=== PATIENT | male | born 1990 | race Caucasian/White ===

== ENCOUNTER 2023-09-12 20:25 | Emergency (ER) | payer SELFPAY ==
[~2023-09-12] VITALS: Ht 162.6 cm; Wt 96.0 kg
[2023-09-12 20:42] VITALS: O2SAT 97
[2023-09-12] MEDS: TETANUS, DIPHTHERIA, PERTUSSIS VAC/PF 0.5ML (>10YR OLD) IM ONE (21:25)
[2023-09-12] MEDS ORDERED: AMOX1TAB16 MT (21:28)
[2023-09-12] MEDS: LIDOCAINE HCL/PF 1% 10 MG/ML 5ML VIAL INFIL ONE (21:58)
[2023-09-12 22:51] VITALS: BP 129/90; PULSE 74; RESP 18; TEMP 98.2
== END 2023-09-12 22:54 | disposition home or self-care (01) ==
LOC: ER 20:25
DX: S61.451A Open bite of right hand, initial encounter (principal)
CPT/HCPCS: 90715; 12002; 90471; 99283; J3490; Z7610

== ENCOUNTER 2023-09-26 08:57 | Emergency (ER) | payer SELFPAY ==
[~2023-09-26] VITALS: Ht 172.7 cm; Wt 88.0 kg
[~2023-09-26 08:57] MED LIST: AMOX1TAB16 MT
[2023-09-26 09:11] VITALS: O2SAT 99
[2023-09-26 10:23] VITALS: BP 119/78; PULSE 71; RESP 20; TEMP 98
== END 2023-09-26 11:26 | disposition home or self-care (01) ==
LOC: ER 08:57
DX: S51.811D Laceration without foreign body of right forearm, subsequent encounter (principal); W54.0XXD Bitten by dog, subsequent encounter
CPT/HCPCS: 99281; Z7610

== ENCOUNTER 2024-01-06 06:24 | Inpatient (IN) | payer SELFPAY ==
[~2024-01-06] VITALS: Ht 165.1 cm; Wt 89.8 kg
[2024-01-06] MEDS ORDERED: ONDANSETRON HCL 4MG/2ML INJ IV STA (06:57)
[2024-01-06] MEDS ORDERED: MORPHINE SULFATE 4 MG/ML INJ (FOR IV/IM USE) IV STA (06:57)
[2024-01-06 07:16] LABS: CHLORIDE 105 mEq/L (98-107); POTASSIUM 4.9 mEq/L (3.5-5.1); SODIUM 137 mEq/L (136-145)
[2024-01-06 07:17] LABS: CALCIUM 9.8 mg/dL (8.7-10.4); CARBON DIOXIDE 26 mEq/L (21-32)
[2024-01-06 07:19] LABS: BASOPHILS % 0.3 % (0.0-2.0); EOSINOPHILS % 0.3 % (0.0-5.0); HEMATOCRIT. 48.6 % (42.0-52.0); HEMOGLOBIN. 17.1 g/dL (14.0-18.0); LYMPHOCYTES % 11.2 % (20.0-50.0); MEAN CORPUSCULAR HEMOGLOBIN 33.1 pg (28.0-32.0); MEAN CORPUSCULAR HGB CONC 35.2 g/dL (31.0-37.0); MEAN CORPUSCULAR VOLUME 93.9 fL (80.0-94.0); MEAN PLATELET VOLUME 8.3 fl (7.4-10.4); MONOCYTES % 6.2 % (2.0-8.0); PLATELET 199 x1000/uL (130-400); RED BLOOD CELL COUNT 5.18 mill/uL (4.7-6.1); RED CELL DISTRIBUTION WIDTH 12.9 % (11.6-14.6); WHITE BLOOD COUNT 13.6 x1000/uL (4.5-11.0)
[2024-01-06 07:22] LABS: CREATININE 0.8 mg/dL (0.6-1.3); GLUCOSE 170 mg/dL (70-105); UREA NITROGEN BLOOD 13 mg/dL (9-23)
[2024-01-06 07:24] LABS: ALANINE AMINOTRANSFERASE 88 IU/L (10-49); ASPARTATE AMINOTRANSFERASE 67 IU/L (<34); BILIRUBIN DIRECT 0.2 mg/dL (<=3.0); BILIRUBIN TOTAL 0.9 mg/dL (0.1-1.0); PROTEIN TOTAL 6.9 g/dL (6.0-8.3)
[2024-01-06 07:36] LABS: PROTHROMBIN TIME 10.9 sec (9.6-11.0)
[2024-01-06] MEDS: MORPHINE SULFATE 4 MG/ML INJ (FOR IV/IM USE) IV NR (09:41)
[2024-01-06] MEDS: ONDANSETRON HCL 4MG/2ML INJ IV NR (09:41)
[2024-01-06] MEDS: IOHEXOL-300 100 ML BOTTLE ONE (09:57)
[2024-01-06] MEDS ORDERED: MAGNESIUM/ALUMINUM HYDROXIDE/SIMETHICONE 30ML UDC PO PRN (13:45)
[2024-01-06] MEDS ORDERED: ACETAMINOPHEN 325MG TABLET PO PRN (13:45)
[2024-01-06] MEDS ORDERED: GUAIFENESIN 200MG/10ML SUGAR FREE UDC PO PRN (13:45)
[2024-01-06] MEDS ORDERED: DOCUSATE SODIUM 100MG CAPSULE PO PRN (13:45)
[2024-01-06] MEDS ORDERED: CLONIDINE 0.1MG TABLET PO PRN (13:45)
[2024-01-06] MEDS ORDERED: ONDANSETRON HCL 4MG/2ML INJ IV PRN (13:45)
[2024-01-06] MEDS ORDERED: NALOXONE HCL 0.4MG/ML VIAL IV PRN (14:00)
[2024-01-06] MEDS ORDERED: SODIUM CHLORIDE 0.9% 1,000 ML IV ONE (14:15)
[2024-01-06 14:18] LABS: PHOSPHORUS 2.7 mg/dL (2.5-4.9)
[2024-01-06 14:20] LABS: T4 FREE 1.11 ng/dL (0.89-1.76)
[2024-01-06 14:21] LABS: THYROID STIMULATING HORMONE 2.68 uIU/mL (0.55-4.78)
[2024-01-06 14:37] LABS: HEPATITIS B SURFACE ANTIGEN NEGATIVE (Negative)
[2024-01-06 14:57] LABS: HEPATITIS A AB IGM NEGATIVE (Negative)
[2024-01-06 14:58] LABS: HEPATITIS B CORE AB IGM NEGATIVE (Negative); HEPATITIS C AB NON REACTIVE (Neg) (Negative)
[2024-01-06] MEDS: SODIUM CHLORIDE 0.9% 1,000 ML IV ONE (15:42)
[2024-01-06] MEDS: PANTOPRAZOLE SODIUM 40 MG/VIAL IV SCH ×2 (15:43→20:47)
[2024-01-06 16:00] VITALS: BP 138/75; PULSE 92; RESP 20; TEMP 98.6
[2024-01-06] MEDS: LACTATED RINGERS 1,000 ML IV SCH (16:00)
[2024-01-06] MEDS: MORPHINE SULFATE 2 MG/ML INJ (NOT FOR IM USE) IV PRN (16:27)
[2024-01-06 16:34] VITALS: BP 142/101; PULSE 80; RESP 16; TEMP 97.7
[2024-01-06 18:35] LABS: ETHANOL BLOOD < 10 mg/dL (<10)
[2024-01-06] MEDS: ACETAMINOPHEN 325MG TABLET PO PRN (18:47)
[2024-01-06] MEDS ORDERED: LORAZEPAM 2MG/ML INJ IV PRN (19:15)
[2024-01-06 20:00] VITALS: BP 138/85; PULSE 89; RESP 18; TEMP 97.7
[2024-01-06] MEDS: FOLIC ACID 1MG TABLET PO SCH (20:47)
[2024-01-06] MEDS: THIAMINE HCL 100MG TABLET PO SCH (20:47)
[2024-01-07] VITALS: BP 151/96; PULSE 94; RESP 18; TEMP 98.1
[2024-01-07 07:31] LABS: BASOPHILS % 0.1 % (0.0-2.0); EOSINOPHILS % 0.2 % (0.0-5.0); HEMATOCRIT. 45.6 % (42.0-52.0); HEMOGLOBIN. 15.9 g/dL (14.0-18.0); LYMPHOCYTES % 12.7 % (20.0-50.0); MEAN CORPUSCULAR HEMOGLOBIN 32.5 pg (28.0-32.0); MEAN CORPUSCULAR HGB CONC 34.8 g/dL (31.0-37.0); MEAN CORPUSCULAR VOLUME 93.5 fL (80.0-94.0); MEAN PLATELET VOLUME 8.3 fl (7.4-10.4); MONOCYTES % 6.6 % (2.0-8.0); NEUTROPHILS % 80.4 % (40.0-76.0); PLATELET 171 x1000/uL (130-400); RED BLOOD CELL COUNT 4.88 mill/uL (4.7-6.1); RED CELL DISTRIBUTION WIDTH 13.4 % (11.6-14.6); WHITE BLOOD COUNT 10.3 x1000/uL (4.5-11.0)
[2024-01-07 07:50] LABS: CHLORIDE 102 mEq/L (98-107); POTASSIUM 4.2 mEq/L (3.5-5.1); SODIUM 136 mEq/L (136-145)
[2024-01-07 07:51] LABS: CALCIUM 9.1 mg/dL (8.7-10.4); CARBON DIOXIDE 27 mEq/L (21-32)
[2024-01-07 07:56] LABS: CREATININE 0.8 mg/dL (0.6-1.3); GLUCOSE 114 mg/dL (70-105); UREA NITROGEN BLOOD 12 mg/dL (9-23)
[2024-01-07 07:58] LABS: ALANINE AMINOTRANSFERASE 56 IU/L (10-49); ALBUMIN 4.2 g/dL (3.2-4.8); ASPARTATE AMINOTRANSFERASE 38 IU/L (<34); BILIRUBIN TOTAL 1.7 mg/dL (0.1-1.0)
[2024-01-07 08:00] VITALS: BP 143/99; PULSE 91; RESP 18; TEMP 97.9
[2024-01-07 12:00] VITALS: BP 153/96; PULSE 110; RESP 18; TEMP 98.1
[2024-01-07 16:00] VITALS: BP 142/92; PULSE 106; RESP 18; TEMP 98.1
[2024-01-07 20:00] VITALS: BP 132/88; PULSE 95; RESP 18; TEMP 97.6
[2024-01-07] MEDS: HYDROCODONE/ACETAMINOPHEN 5/325MG TABLET PO PRN (23:19)
[2024-01-08] VITALS: BP 136/82; PULSE 95; RESP 18; TEMP 97.7
[2024-01-08 04:00] VITALS: BP 130/85; PULSE 83; RESP 18; TEMP 97.5
[2024-01-08 07:20] LABS: BASOPHILS % 0.3 % (0.0-2.0); EOSINOPHILS % 1.4 % (0.0-5.0); HEMATOCRIT. 42.4 % (42.0-52.0); HEMOGLOBIN. 14.8 g/dL (14.0-18.0); LYMPHOCYTES % 17.1 % (20.0-50.0); MEAN CORPUSCULAR HEMOGLOBIN 32.7 pg (28.0-32.0); MEAN CORPUSCULAR HGB CONC 34.8 g/dL (31.0-37.0); MEAN PLATELET VOLUME 8.4 fl (7.4-10.4); MONOCYTES % 8.2 % (2.0-8.0); PLATELET 165 x1000/uL (130-400); RED BLOOD CELL COUNT 4.52 mill/uL (4.7-6.1); RED CELL DISTRIBUTION WIDTH 12.9 % (11.6-14.6); WHITE BLOOD COUNT 11.6 x1000/uL (4.5-11.0)
[2024-01-08 07:24] LABS: CARBON DIOXIDE 26 mEq/L (21-32); CHLORIDE 103 mEq/L (98-107); POTASSIUM 4.2 mEq/L (3.5-5.1); SODIUM 135 mEq/L (136-145)
[2024-01-08 07:25] LABS: CALCIUM 9.3 mg/dL (8.7-10.4)
[2024-01-08 07:30] LABS: CREATININE 0.7 mg/dL (0.6-1.3); GLUCOSE 93 mg/dL (70-105); UREA NITROGEN BLOOD 9 mg/dL (9-23)
[2024-01-08 08:00] VITALS: BP 136/90; PULSE 103; RESP 20; TEMP 99.4
[2024-01-08 09:19] LABS: ALANINE AMINOTRANSFERASE 43 IU/L (10-49); ALBUMIN 4.2 g/dL (3.2-4.8); ASPARTATE AMINOTRANSFERASE 33 IU/L (<34); BILIRUBIN DIRECT 0.5 mg/dL (<=3.0); BILIRUBIN TOTAL 1.6 mg/dL (0.1-1.0); PROTEIN TOTAL 6.9 g/dL (6.0-8.3)
[2024-01-08 12:00] VITALS: BP 139/95; PULSE 97; RESP 20; TEMP 99.2
[2024-01-08] MEDS ORDERED: FOLI-43 PO (12:18)
[2024-01-08] MEDS ORDERED: THIA100T72 PO (12:18)
[2024-01-08] MEDS ORDERED: ATOR20TA MT (12:18)
[2024-01-08 16:00] VITALS: BP 134/93; PULSE 114; RESP 20; TEMP 100.1
[2024-01-08 16:28] VITALS: BP 139/95; PULSE 97; TEMP 99.2; O2SAT 95
== END 2024-01-08 18:45 | disposition home or self-care (01) | DRG 282 ==
LOC: ER 06:24 → 6WST 11:37 → EDBEDREQ 11:43 → EDBEDREQTM 11:43
PROVIDERS: ADMIT Internal Medicine; ATTEND Internal Medicine
DX: K85.20 Alcohol induced acute pancreatitis without necrosis or infection (principal); R18.8 Other ascites; K76.0 Fatty (change of) liver, not elsewhere classified; E78.1 Pure hyperglyceridemia; E78.00 Pure hypercholesterolemia, unspecified; D72.829 Elevated white blood cell count, unspecified; F10.10 Alcohol abuse, uncomplicated; Z20.822 Contact with and (suspected) exposure to COVID-19; Y90.9 Presence of alcohol in blood, level not specified; R16.1 Splenomegaly, not elsewhere classified; R74.01 Elevation of levels of liver transaminase levels; R73.9 Hyperglycemia, unspecified; Z79.899 Other long term (current) drug therapy
CPT/HCPCS: 36415; 74177; 76700; 80048; 80053; 80061; 80076; 80320; 82150; 82962; 83036; 83605; 83735; 84100; 84145; 84439; 84443; 85025; 86705; 86709; 87340; 99285; J2270; J2405; J2470; J7120; Q9967; G0480